=== PATIENT | male | born 1965 | race Two or more races ===

== ENCOUNTER 2025-05-24 10:35 | Day surgery (SDC) | payer BC, MEDICARE, SELFPAY ==
[2025-05-23 14:56] VITALS: BMI 31.0
[2025-05-24] VITALS (13 sets, daily range): BP systolic 128–195; BP diastolic 63–104; PULSE 70–82; RESP 12–24; TEMP 36.3–37.1; O2SAT 95–100; BMI 29.5
[2025-05-24] MEDS: SODIUM CHLORIDE 0.9% 500 ML 500 ML 20 ML IV (12:46)
[2025-05-24] MEDS: BENZOCAINE 20% (Hurricaine) SPRAY 1 DOSE TOP (12:46)
[2025-05-24] MEDS: MIDAZOLAM INJ 1 MG/ML VIAL 2 ML (ASD USE ONLY) 2 MG IVP (13:07)
[2025-05-24] MEDS: fentaNYL CIT INJ 50 mCg/ML AMP 2ML (ASD USE ONLY) IVP (13:07)
== END 2025-05-24 14:00 | disposition home or self-care (01) ==
PROVIDERS: PCP Internal Medicine; Referring Provider Specialist; Visit Provider Specialist
PROC: 0DBE8ZX Excision of Large Intestine, Via Natural or Artificial Opening Endoscopic, Diagnostic (ICD-10-PCS; CPT 45380; principal; 2025-05-24 13:00)
PROC: (CPT 43239; 2025-05-24 13:00)
DX: K64.9 Unspecified hemorrhoids (principal); R19.5 Other fecal abnormalities; R10.30 Lower abdominal pain, unspecified; K57.30 Diverticulosis of large intestine without perforation or abscess without bleeding; I12.9 Hypertensive chronic kidney disease with stage 1 through stage 4 chronic kidney disease, or unspecified chronic kidney disease; E11.22 Type 2 diabetes mellitus with diabetic chronic kidney disease; N18.4 Chronic kidney disease, stage 4 (severe); Z79.01 Long term (current) use of anticoagulants; Z79.02 Long term (current) use of antithrombotics/antiplatelets; Z79.899 Other long term (current) drug therapy; E78.5 Hyperlipidemia, unspecified; Z95.828 Presence of other vascular implants and grafts
CPT/HCPCS: 45378; A4649; J1200; J2250; J3010; J7999; A9270